=== PATIENT | female | born 1960 | race Caucasian/White ===

== ENCOUNTER 2023-04-16 08:44 | Outpatient (CLI) | payer BC, SELFPAY ==
--- NOTE | 2023-04-16 09:00 | CRLHL7_ITS ---
For Patients: As a result of the Century Cures Act, medical imaging exams and procedure reports are released immediately into your electronic medical record. You may view this report before your referring provider. If you have questions, please contact your health care provider. Indication: Difficulty breathing, mainly left side. Technique: CT of the paranasal sinuses without contrast. Coronal and sagittal reformatted images. Bone and soft tissue algorithms. Comparison: None available. Findings: Frontal sinuses: The frontal sinuses and frontal recesses are clear. The agger nasi cells are clear. Ethmoid air cells: Mild mucosal thickening within the anterior ethmoid air cells.Symmetric depths of the olfactory fossa. The anterior ethmoidal arteries are well-covered by bone. Sphenoid sinuses: The sphenoid sinuses and ostia are clear. No optic canal or carotid canal dehiscence. An osseous sphenoid septum originates from the anterior right carotid canal. Maxillary sinuses: The maxillary sinuses are clear. The osteomeatal units are clear. Bilateral accessory ostia are noted. Nasal cavity: Mild leftward deviation of the nasal septum.. Small middle turbinate elias bullosa are noted. Other: No lytic or blastic osseous lesions. Orbits and intracranial structures are unremarkable in appearance. Mastoid air cells are clear. IMPRESSION: 1. Mild mucosal thickening within the anterior ethmoid air cells. 2. Small bilateral middle turbinate elias bullosa. Please note that all CT scans at this facility use dose modulation, iterative reconstruction, and/or weight-based dosing when appropriate to reduce radiation dose to as low as reasonably achievable. ----- ADDENDUM ----- Addendum: An exophytic polyp measuring approximately 1.2 x 0.7 x 0.6 cm (series 3, image 48 and series 5, image 31) occupies the right middle meatus, with likely origin from the adjacent middle turbinate. Dictated by Francis Hart MD @ May 23 2023 3:45PM Dictated by Francis Hart MD @ 04/16/2023 12:19:45 PM (Electronically Signed)
== END 2023-04-16 08:45 | disposition home or self-care (01) ==
LOC: CT 08:45
PROVIDERS: PCP Family Medicine; Visit Provider Otolaryngology
DX: J34.89 Other specified disorders of nose and nasal sinuses (principal); J34.3 Hypertrophy of nasal turbinates
CPT/HCPCS: 70486

== ENCOUNTER 2023-05-01 19:26 | Outpatient (CLI) | payer BC, SELFPAY ==
--- NOTE | 2023-05-15 08:46 | W.PM.SLEEP ---
Sleep Study Details Details Interpreting Provider: Ajit Date of Sleep Study: 05/01/23 Sleep Study Details: STUDY TYPE:? Home unattended ? BMI:? 25.2 ORDERING PROVIDER:? Ajit INDICATION:? Concerns about sleep apnea ? SLEEP SUMMARY:? 357.5 minutes monitored RESPIRATORY SUMMARY:? AHI 7.6, supine 9.9, right lateral 0 Low oxygen 87 0.2% of study oxygen less than 90% Snoring 19.8% PERIODIC LIMB MOVEMENTS OF SLEEP:? Not CARDIAC:? Recorded during home study range 49-102, mean 59.1 IMPRESSION:? Mild obstructive sleep apnea with supine position dependency RECOMMENDATION: If patient is symptomatic treatment could consist of positional therapy, AutoSet CPAP 4-17, dental appliance and/or airway expansion surgery.
== END 2023-05-01 19:27 | disposition home or self-care (01) ==
LOC: SLEEP 19:27
PROVIDERS: PCP Family Medicine; Visit Provider Otolaryngology
DX: G47.33 Obstructive sleep apnea (adult) (pediatric) (principal)
CPT/HCPCS: 95806